=== PATIENT | female | born 2000 | race Caucasian/White ===

== ENCOUNTER 2024-04-06 22:24 | Emergency (ER) | payer BC, SELFPAY ==
[2024-04-06 22:26] VITALS: BP 120/82
--- NOTE | 2024-04-06 23:02 | ED.GENMED ---
History of Present Illness
General
Chief Complaint: Cold/Flu/URI Symptoms
Source: patient
Exam Limitations: none
Time Seen by Provider: 04/06/24 22:50
Travel History
Have you had any contact with someone who has COVID-19?: No
Do you have any symptoms of coronavirus? Fever > 100 degrees, chills, cough, shortness of breath, sore throat, loss of taste or smell, muscle aches, or headache?: No
History of Present Illness
History of Present Illness:
This is a 23 year old female that comes in with c/o cough. States that last week she tested Positive for COVID. State that she has been coughing before this for the past 3.5 weeks. States that she believed that on Saturday she was coughing so hard
that she passed out. States that last night she was coughing and she felt SOB and dizzy. Denies any fever, chills chest pain, SOB, abd pain, nausea, vomiting, diarrhea, headache, urinary burning.
Past History
Past History
ED Past Medical History: None; Negative Asthma, HTN, Hypercholesterolemia or NIDDM
ED Past Surgical History: None
Social History
Tobacco: Non-smoker
Alcohol: Occasional
Personal: Single
Living: with family
Review of Systems
Review of Systems
All Other Systems: ROS reviewed and negative except as documented in HPI and ROS
Constitutional: Reports no symptoms; Denies fever or chills
EENT: Reports no symptoms
Respiratory: Reports cough; Denies trouble breathing
Cardiac: Reports no symptoms; Denies chest pain
ABD/GI: Reports no symptoms; Denies abdominal pain, nausea, vomiting or diarrhea
: Reports no symptoms; Denies dysuria, frequency or urgency
Musculoskeletal: Reports no symptoms
Skin: Reports no symptoms
Neurological: Reports other (Lightheaded); Denies headache
Psychiatric: Reports no symptoms
Phy Exam
General Physical Exam
General Presentation: no apparent distress
General age: appears stated age
General Skin: warm and dry
General Habitus: normal
General Mental: alert
General Hydration: appears well hydrated
ENT Exam
ENT Exam: pharynx normal, neck supple and TM's abnormal (Right otitis media)
Eye Exam
Eye Exam: EOMI
Cardiovascular Exam
Cardiovascular Exam: regular rate/rhythm, no edema, no murmur and normal peripheral pulses
Pulmonary Exam
Pulmonary Exam: lungs clear, no respiratory distress, no rales, chest non tender, no crackles, no rhonchi, no wheezing and no cough
Gastrointestinal Exam
Gastrointestinal Exam: normal bowel sounds, non tender, soft, no organomegaly, no pulsatile mass and non distended
Musculoskeletal Exam
Musculoskeletal Exam: full ROM and no edema
Skin Exam
Skin Exam: normal color, warm/dry, no rash and no petechia
Psychiatric Exam
Psychiatric Exam: normal mood/affect
Course
Orders/Labs/Results
Orders:
Orders
04/06/24 23:01
Test Result ONCE
04/06/24 23:40
Complete Blood Count/With Diff Urgent
Comprehensive Metabolic Panel Urgent
D-Dimer Urgent
HCG, Serum Qualitative Screen Urgent
04/07/24 00:00
CR Chest - 2 Views Urgent
Reason For Exam: Cough
Abnormal Lab Results
04/06/24
23:40
Absolute Monos (auto) 0.7 H 10^3/uL
(0.1-0.6)
Glucose 101 H mg/dl
(70-99)
04/06/24 23:40
04/06/24 23:40
Glucose nonfasting. D-dimer 0.46. HCG negative.
Vital Signs
Initial and Last Documented VS:
Initial Vital Signs
Temp Pulse Resp BP Pulse Ox
98.3 F 102 22 120/82 97
04/06/24 22:26 04/06/24 22:26 04/06/24 22:26 04/06/24 22:26 04/06/24 22:26
Last Documented Vital Signs
Temp Pulse Resp BP Pulse Ox
98.3 F 76 22 105/68 97
04/06/24 22:26 04/06/24 23:33 04/06/24 22:26 04/07/24 00:00 04/07/24 00:45
MDM/Problems Addressed
Differential Diagnosis Includes:
PNA, PE,
MDM/Problems Addressed:
This is a 23 year old female that comes in with c/o cough. States that she had COVID last week but she has been coughing for the past 3.5 weeks. States that she thinks on Saturday that she coughed so hard that she passed out. States that she was up
last night due to the coughing. State that she gets lightheaded.
Will get labs, Chest x-ray.
Back into see patient. Explained that her blood work is normal along with her chest x-ray. Patient does have an Otitis media in the right ear so will be place on Antibiotics. Patient also requested something for cough so she can sleep. Will sent a
prescription for Phenergan with Codeine. Patient to return with any concerns.
Chronic conditions affecting care:
NA
Acute Exacerbation and/or Progression of Chronic Illness:
NA
*Pulse Oximetry
Patient hypoxic: no
*EKG
Interpreted by ED Provider?: NA
Rate: EKG- N/A
*Sign Maker Interpretation
Rate: Sign Maker- N/A
*Critical Care Note
Total Time (30-74mins, 75-104mins- exclusive of procedures): Not Applicable
ED Attending Note
-
Portions of this chart may have been created with voice recognition software.� Occasional wrong word or��sound alike� substitutions may have occurred due to the inherent limitations of voice recognition software.
Discharge Plan
Departure
Patient Disposition: Home (Routine Discharge)
Date of Disposition: 04/07/24
Time of Disposition: 01:11
Patient with high blood pressure during this ER visit?: No
Condition: Good
Covid-19: Not Applicable
Discharge Problem:
Otitis media of right ear, Cough in adult
Instructions: Cough, Adult (DC), Ear Infections in Adults (DC)
Prescriptions:
New
amoxicillin-pot clavulanate 875-125 mg tablet
1 tab PO BID Qty: 14 0RF
promethazine-codeine 6.25-10 mg/5 mL syrup
5 ml PO Q6H PRN (Reason: Cough) Qty: 50 0RF
Referrals:
NONE,* [Family Provider] -
Activity Restrictions/Additional Instructions:
As discussed, your blood work is normal. Your D-dimer is normal along with your chest x-ray. You do have an ear infection. You have had 2 prescriptions sent to your Pharmacy. The first is a narcotic cough medication to help with your cough. Please
use only be fore going to bed as this will make you tired. Please no driving or alcohol when taking. You have also had a prescription for an antibiotic sent to your Pharmacy. You have been given your first dose here. Please follow up with the family
doctor for recheck. IF YOU HAVE ANY OTHER CONCERNS PLEASE RETURN TO THE EMERGENCY ROOM.
Interventions
Interventions:
*Risk Screen - Suicide Last Done: 04/06/24 22:26
*General Assessment Last Done: 04/06/24 23:40
*Neglect/Abuse Screening Last Done: 04/06/24 22:26
*ED COVID-19 Vaccine History Last Done: 04/06/24 23:40
ED- Cardiac Assessment Last Done: 04/06/24 23:48
ED- Pulmonary Assessment Last Done: 04/06/24 23:48
Discharge Date and Time
Print Language: ANGUILLAN
[2024-04-06 23:32] VITALS: BP 103/69
[2024-04-06 23:33] VITALS: BP 103/69
[2024-04-06 23:49] LABS: % Basophils 0.5 % (0-2); % Eosinophils 5.3 % (0-6); % Immature Granulocytes 0.4 % (0-0.5); % Lymphocytes 32.4 % (20.5-51.1); % Monocytes 8.9 % (1.7-9.3); % Neutrophils 52.5 % (42.2-75.2); Absolute Eosinophils 0.4 10^3/uL (0-0.7); Absolute Lymphocytes 2.7 10^3/uL (1.2-3.4); Absolute Monocytes 0.7 10^3/uL (0.1-0.6); Absolute Neutrophils 4.4 10^3/uL (1.4-6.5); Hematocrit 37.6 % (37.0-47.0); Hemoglobin 13.2 g/dL (12.0-16.0); Mean Corp Hgb Conc. 35.1 g/dL (33.0-37.0); Mean Corpuscular Hgb 29.8 pg (27.0-31.0); Mean Corpuscular Volume 84.9 fL (81.0-99.0); Nucleated Red Blood Cells % 0 %; Platelet Count 264 10^3/uL (130-400); Red Blood Cell Count 4.43 10^6/uL (4.20-5.40); Red Cell Dist. Width 12.4 % (11.5-14.5); White Blood Cell Count 8.3 10^3/uL (4.8-10.8)
[2024-04-07] VITALS: BP 105/68
[2024-04-07 00:03] LABS: D-Dimer 0.46 ug/mlFEU (0.00-0.50)
[2024-04-07 00:09] LABS: HCG, Serum Qualitative Screen Negative
[2024-04-07 00:17] LABS: ALT (SGPT) 15 U/L (0-35); AST (SGOT) 20 U/L (14-36); Albumin 4.1 g/dl (3.5-5.0); Alkaline Phosphatase 74 U/L (38-126); Blood Urea Nitrogen 13 mg/dl (7-17); Calcium 9.5 mg/dl (8.4-10.2); Carbon Dioxide 25 mmol/L (22-30); Chloride 104 mmol/L (98-107); Glucose 101 mg/dl (70-99); Potassium 3.7 mmol/L (3.5-5.1); Sodium 137 mmol/L (135-145); Total Bilirubin 0.2 mg/dl (0.2-1.3); Total Protein 7.2 g/dl (6.3-8.2); eGFR > 60.00
[2024-04-07] MEDS: AUGMENTIN 875 MG/125 MG 1 TABLET PO (01:24)
[2024-04-07 01:38] VITALS: BP 111/65
== END 2024-04-07 01:38 | disposition home or self-care (01) ==
LOC: EMR 22:24
PROVIDERS: Clinical Nurse Specialist Family Health; EMERGENCY PHYSICIAN Student in an Organized Health Care Education/Training Program
DX: R05.9 Cough, unspecified (principal); H66.91 Otitis media, unspecified, right ear
CPT/HCPCS: 99284; 71046; 80053; 84703; 85025; 85379